=== PATIENT | female | born 1960 | race Caucasian/White ===

== ENCOUNTER 2023-12-31 11:15 | Outpatient (CLI) | payer MEDICARE ==
--- NOTE | 2024-01-01 00:58 | XRAY Report ---
PROCEDURE: Elbow 3+V LT INDICATIONS: ELBOW JOINT PAIN, LEFT TECHNIQUE: 3 views of the elbow were acquired. COMPARISON: None FINDINGS: Bones: Radial neck fracture without displacement. Normal bone mineralization. Soft tissues: Large elbow joint effusion. No suspicious soft tissue calcifications. IMPRESSION: Nondisplaced right radial neck fracture associated with joint effusion Reviewed by: Arnold Pearson MD on 12/31/2023 11:57 PM AKDT Approved by: Arnold Pearson MD on 12/31/2023 11:57 PM AKDT Station ID: [id number]
--- NOTE | 2024-01-01 00:59 | XRAY Report ---
PROCEDURE: Forearm LT INDICATIONS: WRIST JOINT PAIN, LEFT TECHNIQUE: 2 views of the forearm were acquired. COMPARISON: None FINDINGS: Bones: Nondisplaced radial neck fracture associated with large joint effusion at the elbow Soft tissues: No suspicious soft tissue calcifications or masses. IMPRESSION: Nondisplaced radial neck fracture with elbow joint effusion Reviewed by: Arnold Pearson MD on 12/31/2023 11:58 PM AKELYSE Approved by: Arnold Pearson MD on 12/31/2023 11:58 PM AKDT Station ID: [id number]
--- NOTE | 2024-01-01 00:59 | XRAY Report ---
PROCEDURE: Wrist 3+V LT INDICATIONS: WRIST JOINT PAIN, LEFT TECHNIQUE: 3 views of the wrist were acquired. COMPARISON: None FINDINGS: Bones: No fractures or dislocations. No suspicious bony lesions. Soft tissues: No suspicious soft tissue calcifications or masses. IMPRESSION: Unremarkable wrist radiographs Reviewed by: Arnold Pearson MD on 12/31/2023 11:57 PM AKDT Approved by: Arnold Pearson MD on 12/31/2023 11:57 PM AKDT Station ID: [id number]
== END 2023-12-31 11:30 | disposition home or self-care (01) ==
LOC: DI.N 11:15
PROVIDERS: ATTEND Physician Assistant Medical
DX: S52.135A Nondisplaced fracture of neck of left radius, initial encounter for closed fracture (principal); M25.422 Effusion, left elbow